=== PATIENT | male | born 1955 | race Caucasian/White ===

== ENCOUNTER → 2018-02-21 | Outpatient (CLI) | payer BC ==
--- NOTE | 2018-02-21 18:39 | PCVCIMAG ---
APPROVED REPORT Study performed: 02/21/2018 16:03:22 Exam: Stress Echocardiogram Indication: Dyspnea , fam hx CAD Patient Location: Echo lab Stress Nurse: Sharlene Infante RN Room #: 2 Status: routine Ht: 5 ft 10 in HR: 72 bpm BP: 110/76 mmHg Rhythm: NSR Medical History Cardiac Risk Factors: FHX of CAD Previous Cardiac Procedures: none Pretest Chest Pain Characteristics: No chest pain Exercise History: Physically active Procedure The patient underwent an Exercise Stress Test using the Valentina Protocol. Blood pressure, heart rate, and EKG were monitored. An Echocardiogram was performed by nuclear technician in four stages in quad fashion. At peak stress, four selected images were obtained and placed side by side with resting images for comparison. Stress Test Details Stress Test: Exercise stress testing was performed using a Valentina protocol. HR Resting HR: 86 bpmMax Heart Rate (APMHR): 156 bpm Max HR Achieved: 169 bpmTarget HR (85% APMHR): 132 bpm % of APMHR: 108 Recovery HR: 96 bpm HR response to stress: Normal HR response to stress BP Resting BP: 110/76 mmHg Max BP: 174/82 mmHg Recovery BP: 130/80 mmHg ECG Resting ECG: Sinus Rhythm Stress ECG: Sinus Rhythm ST Change: Non-ischemic Arrhythmia: Rare PVC Recovery ECG: Sinus Rhythm Recovery ST Change: Non-ischemic Recovery Arrhythmia: None Clinical Reason for Termination: Maximal effort Stress Symptoms: none Exercise duration: 13 min 01 sec Highest Stage Achieved: Stage 5: 5.0 mph at 18% grade. Exercise capacity: 17.2 METs Overall Exercise Capacity for Age: Excellent Scale: Active Angina Score: None No complications. Stress ECG Conclusion The patient exercised according to the VALENTINA protocol for 13:01 mins; achieving a work level of 17.2 METS. The resting heart rate of 72 bpm chiquita to a maximum heart rate of 169 bpm. This value represent 108% of the maximal, age-predicted heart rate. The resting blood pressure of 110/76 mmHg, chiquita to a maximum blood pressure of 174/82 mmHg. The exercise test was stopped due to fatigue. Pre-Stress Echo The resting Echocardiogram showed normal left ventricular contractility with an estimated Ejection Fraction of about 55-60%. Normal wall motion in all segments on baseline images. Post-Stress Echo The stress Echocardiogram showed normal left ventricular contractility with an estimated Ejection Fraction of about 65-70%. Normal augmentation of wall motion in all segments on post stress images. Clinical No clinical or ECG evidence for ischemia. Conclusion Clinical Response: Non-ischemic Exercise Capacity: Superior Stress ECG Response: Non-ischemic Stress Echo Images: Non-ischemic No clinical, EKG or echocardiographic evidence for ischemia. No echocardiographic evidence for exercise induced ischemia. Normal stress echocardiogram with maximal exercise stress. <Conclusion> No clinical, EKG or echocardiographic evidence for ischemia. No echocardiographic evidence for exercise induced ischemia. Normal stress echocardiogram with maximal exercise stress.
== END | disposition home or self-care (01) ==
LOC: PCVCIMAG 17:09
PROVIDERS: ATTEND Internal Medicine Cardiovascular Disease
DX: R06.09 Other forms of dyspnea (principal); R07.9 Chest pain, unspecified; Z82.49 Family history of ischemic heart disease and other diseases of the circulatory system
CPT/HCPCS: 93325; 93351